=== PATIENT | female | born 1950 | race Asian ===

== ENCOUNTER 2023-09-23 02:51 | Emergency (ER) | payer OTHER ==
[2023-09-23 03:12] VITALS: BP 170/91; TEMP 102.9; BMI 28.9
[2023-09-23] MEDS ORDERED: ACETAMINOPHEN 1000 MG/100 ML BAG IVPB ONE (04:15)
[2023-09-23] MEDS ORDERED: ACETAMINOPHEN INJECTION 100 ML IVPB ONE (05:09)
[2023-09-23 05:42] LABS: BASO % 0.4 % (0-2.0); EOS % 0.5 % (0-4.5); HEMATOCRIT 41.1 % (32.4-45.2); HEMOGLOBIN 13.6 GM/dL (10.7-15.3); LYMPH % 6.2 % (8-40); MCH 30.1 pg (25.7-33.7); MCHC 33.2 g/dl (32.0-36.0); MEAN CELL VOLUME 90.7 fl (80-96); MEAN PLT VOLUME 10.2 fl (7.5-11.1); MONO % 6.9 % (3.8-10.2); PLATELET COUNT 113 10^3/uL (134-434); RBC 4.54 M/mm3 (3.60-5.2); RDW 13.6 % (11.6-15.6); WHITE BLOOD COUNT 10.6 K/mm3 (4.0-10.0)
[2023-09-23 05:50] LABS: INR 1.17 (0.83-1.09); PROTHROMBIN TIME (PATIENT) 13.6 SEC (9.7-13.0)
[2023-09-23 06:01] LABS: POTASSIUM 4.2 mmol/L (3.5-5.1)
[2023-09-23 06:03] LABS: ALBUMIN 3.8 g/dl (3.4-5.0); BLOOD UREA NITROGEN 11.5 mg/dL (7-18); CALCIUM 8.8 mg/dL (8.5-10.1); MAGNESIUM 1.3 mg/dL (1.8-2.4)
[2023-09-23 06:06] LABS: CREATININE 0.9 mg/dL (0.55-1.3)
[2023-09-23 06:09] LABS: BILIRUBIN,TOTAL 0.9 mg/dL (0.2-1)
[2023-09-23] MEDS ORDERED: MAGNESIUM SULF 50% (8.12 MEQ/2 ML-1 GM VIAL) IVPB ONE (06:16)
[2023-09-23] MEDS ORDERED: MAGNESIUM SULFATE IN WATER 2 GM/50 ML IVPB IVPB ONE (06:21)
[2023-09-23] MEDS ORDERED: TETRACAINE 0.5% OPHTH SOLN 2 ML BOTTLE OD ONE (06:38)
[2023-09-23] MEDS ORDERED: FLUORESCEIN NA 1 EA STRIP OD ONE (06:38)
[2023-09-23] MEDS ORDERED: TETRACAINE 0.5% OPHTH SOLN 2 ML BOTTLE ONE (06:40)
[2023-09-23] MEDS ORDERED: FLUORESCEIN NA 1 EA STRIP ONE (06:40)
[2023-09-23 06:41] VITALS: PULSE 114; RESP 20
== END 2023-09-23 07:04 | disposition home or self-care (01) ==
LOC: JER 02:51
PROC: 3E033NZ Introduction of Analgesics, Hypnotics, Sedatives into Peripheral Vein, Percutaneous Approach (ICD-10-PCS; principal; 2023-09-23)
PROC: 3E033GC Introduction of Other Therapeutic Substance into Peripheral Vein, Percutaneous Approach (ICD-10-PCS; 2023-09-23)
DX: S00.12XA Contusion of left eyelid and periocular area, initial encounter (principal); R05.9 Cough, unspecified; R53.81 Other malaise; R53.1 Weakness; R00.0 Tachycardia, unspecified; I51.7 Cardiomegaly; R94.31 Abnormal electrocardiogram [ECG] [EKG]; R22.0 Localized swelling, mass and lump, head; W19.XXXA Unspecified fall, initial encounter; W22.8XXA Striking against or struck by other objects, initial encounter; Y93.01 Activity, walking, marching and hiking; Z20.822 Contact with and (suspected) exposure to COVID-19
CPT/HCPCS: 0241U-QW; 36415; 70450-TC; 70486-TC; 71045-TC-FY; 72125-TC; 80053; 83735; 84484; 85025; 85610; 93005; 93010; 99285-25